=== PATIENT | female | born 1935 | race Caucasian/White ===

== ENCOUNTER 2021-05-24 17:11 | Emergency (ER) | payer OTHER, MEDICARE, SELFPAY ==
[2021-05-24] VITALS (8 sets, daily range): BP systolic 164–208; BP diastolic 88–110; PULSE 89–100; RESP 12–147; TEMP 36.6; O2SAT 9–97; BMI 31.2; BMI 32.1
--- NOTE | ~2021-05-24 | CT_ITS ---
EXAMINATION: CT ANGIOGRAM HEAD CT ANGIOGRAM NECK CLINICAL INFORMATION: Right sided weakness. Found down. Vomiting. COMPARISON: CT head from 05/24/2021. TECHNIQUE: Initial noncontrast gift officer imaging of the head and neck was performed. Comparison is made with noncontrast head CT from earlier today. Test bolus sequences followed by intravenous administration 70 mL of Omnipaque 350. Helical imaging was performed in the axial plane from the aortic arch to the skull vertex. Delayed postcontrast imaging of the head was also performed. The data was processed at the medicine technologist's workstation for generation of MIP sequences. Angled MIPs and volume rendered reformatted images were also generated at an offline 3D workstation. Stenoses are assessed in accordance with NASCET criteria unless otherwise indicated. This CT examination was performed using dose optimization techniques as appropriate, variously including the following: *Automated exposure control. *Adjustment of mA and/or kV according to patient size (this includes techniques or standardized protocols for targeted exams where dose is matched to indication/reason for exam; i.e. extremities or head). *Use of iterative reconstruction technique. DLP: 1483 mGy-cm FINDINGS: CT Head: There is no evidence of acute intracranial hemorrhage or edematous territorial infarction. Scattered hypoattenuation in the periventricular and deep white matter are consistent with moderate microangiopathy. Romero-white matter differentiation is preserved. Proportional prominence of the ventricles and sulcal spaces. No evidence for obstructive hydrocephalus. No abnormal mass effect or midline shift. No extra-axial fluid collections. No pathologic intra-axial enhancement. No acute soft tissue or osseous abnormalities. Moderate mucosal thickening of the paranasal sinuses. Mild leftward nasal septal deviation with spurring. The patient is edentulous. The mastoid air cells and middle ear cavities are clear. Mild degenerative arthropathy of the temporomandibular joints. Bilateral lens extractions. CT Neck: Multinodular thyroid gland. Heterogeneous lesions measure up to 2.3 cm in the right thyroid lobe. The thyroid gland and remaining cervical soft tissues are within normal limits. Advanced degenerative disc disease from C5-T1 with disc-osteophyte complex formation. Facet and uncovertebral joint arthropathy leads to osseous encroachment on the neural foramina from C3-T1. CT Upper Chest: The visualized lung apices and upper mediastinum are within normal limits. Neck CTA: Aortic Arch: Normal contour and caliber with moderate calcific atherosclerotic disease. Classic 3 vessel branching pattern of the aortic arch. Great Vessel Origins: No significant stenosis of the branch origins. Right Common Carotid Artery: No focal stenosis or occlusion. Cervical Right Internal Carotid Artery: Calcific atherosclerotic disease of the carotid bulb and proximal internal carotid artery causing less than 50% stenosis. Left Common Carotid Artery: No focal stenosis or occlusion. Cervical Left Internal Carotid Artery: Calcific atherosclerotic disease of the carotid bulb and proximal internal carotid artery causing less than 50% stenosis. Cervical Right Vertebral Artery: Co-dominant. No focal stenosis or occlusion. Cervical Left Vertebral Artery: Co-dominant. No focal stenosis or occlusion. Brain CTA: Intracranial Internal Carotid Arteries: Calcific atherosclerotic disease of the intracranial internal carotid arteries without occlusion or flow-limiting stenosis. Right Anterior Cerebral Artery: Normal A1 segment. Normal opacification of the distal [place] segments. Left Anterior Cerebral Artery: Normal A1 segment. Normal opacification of the distal [place] segments. Anterior Communicating Artery: Normal. Right Middle Cerebral Artery: Normal M1 segment of the MCA without focal stenosis or occlusion. Normal arborization of the distal segments. Left Middle Cerebral Artery: Normal M1 segment of the MCA without focal stenosis or occlusion. Normal arborization of the distal segments. Right Vertebral Artery: Normal V4 segment. Normal opacification of the proximal segments of the posterior inferior cerebellar artery. Left Vertebral Artery: Normal V4 segment. Normal opacification of the proximal segments of the posterior inferior cerebellar artery. Basilar Artery: Normal without focal stenosis or occlusion. Normal appearance of the proximal superior cerebellar arteries. Right Posterior Cerebral Artery: Normal P1 segment. Normal opacification of the distal EDGER OPERATOR segments. Left Posterior Cerebral Artery: Normal P1 segment. Normal opacification of the distal EDGER OPERATOR segments. Normal opacification of the superior sagittal, straight, transverse, and sigmoid sinuses. CT/CT angio head neck stroke IMPRESSION: 1. No evidence of acute intracranial hemorrhage or edematous territorial infarction. Moderate underlying microangiopathy and generalized cerebral volume loss. 2. CTA of the head and neck without proximal occlusion or flow-limiting stenosis. 3. Moderate multilevel degenerative spondyloarthropathy of the cervical spine. 4. Multinodular thyroid gland. Previously evaluated, this could be further characterized with thyroid ultrasound.
--- NOTE | ~2021-05-24 | CT_ITS ---
EXAMINATION: CT HEAD WITHOUT CONTRAST (STROKE PROTOCOL) CLINICAL INFORMATION: Stroke protocol. Patient found down. Not good history. No trauma. Right-sided weakness. COMPARISON: None TECHNIQUE: Contiguous axial imaging was performed from the skull base to vertex without intravenous administration of contrast. This CT examination was performed using dose optimization techniques as appropriate, variously including the following: *Automated exposure control *Adjustment of mA and/or kV according to patient size (this includes techniques or standardized protocols for targeted exams where dose is matched to indication/reason for exam; i.e. extremities or head) *Use of iterative reconstruction technique DLP: 772 mGy-cm FINDINGS: There is motion artifact on the most cephalad images of the vertex that limits evaluation. No acute intracranial hemorrhage. No evidence of acute large vessel territory ischemia. Moderate periventricular and subcortical white matter hypodensity is seen consistent with chronic microvascular white matter ischemic changes. Chronic lacunar infarct in left basal ganglia. Symmetric increased density in the middle cerebral arteries bilaterally, presumably atherosclerotic changes. Symmetric, concordant prominence of the ventricles and sulci. No mass effect or midline shift. There is circumferential mucosal thickening of the sphenoid and maxillary sinuses. Mild bilateral ethmoid sinus mucosal thickening. Globes and orbits are normal. CT/CT head for stroke IMPRESSION: No acute intracranial pathology. No evidence of acute large vessel territory ischemia or acute intracranial hemorrhage. Moderate periventricular and subcortical white matter hypodensity consistent with chronic microvascular white matter ischemic changes. CTA head and neck is pending. This critical result was discussed with Dr. Hernandez at 1733 hours on 05/24/2021. It was ascertained that the content and urgency of the report was understood at the time of direct communication.
--- NOTE | ~2021-05-24 | XR_ITS ---
EXAMINATION: XR CHEST CLINICAL INFORMATION: CVA COMPARISON: None TECHNIQUE: Frontal view of the chest was obtained. FINDINGS: Low lung volumes. Mild prominence of the pulmonary interstitium. No focal consolidation or mass. No pleural effusions or pneumothorax. Calcified aortic arch. Suture anchors in the left humeral head. Increased density adjacent the left humeral head may reflect calcific tendinitis. XR/XR chest 1V IMPRESSION: Low lung volumes with mild prominence of the pulmonary interstitium, likely bronchovascular crowding. No definite acute pulmonary disease.
--- NOTE | 2021-05-24 17:15 | ECG_ITS ---
Test Reason : SEIZURE Blood Pressure : / mmHG Vent. Rate : 091 BPM Atrial Rate : 091 BPM P-R Int : 192 ms QRS Dur : 102 ms QT Int : 418 ms P-R-T Axes : 024 -02 -01 degrees QTc Int : 514 ms Sinus rhythm with Premature atrial complexes Cannot rule out Inferior infarct (cited on or before 25-APR-2006) Prolonged QT Abnormal ECG When compared with ECG of 25-APR-2006 12:50, Vent. rate has increased BY 30 BPM Referred By: Toney Vila Electronically Signed By:SUSHIL WICK
[2021-05-24 17:23] LABS: Glucose, Whole Blood 198 mg/dL (60-115)
--- NOTE | 2021-05-24 17:25 | ED.NEUROSD ---
HPI - Neuro Symptoms/Deficit General Chief Complaint: Seizure Stated Complaint: stroke/unresponsive 1644 lkwt Time Seen by Provider: 05/24/21 17:14 Source: EMS Mode of arrival: EMS Limitations: no limitations History of Present Illness HPI Narrative: Patient with history of hypertension and diabetes apparent around it 1645 patient's son was taking her getting his hair done patient was weak 1st initially she stumbled and almost fell 2nd time happen again and this time patient had clenched teeth with frothing from the mouth and generalized tonic clonic seizure lasted for 2-3 minutes patient never had any seizure before patient was postictal when EMS arrived and then noticed patient had a right-sided weakness , and just before she arrived her weakness improved and on arrival though no focal deficit patient does not remember falling Related Data Allergies Allergy/AdvReac Type Severity Reaction Status Date / Time No Known Allergies Allergy Verified 05/24/21 17:14 Review of Systems Review of Systems: Yes all other systems are reviewed and are negative [facility] Social History Social History Patient Tobacco Use Status: Former Tobacco user Use of substances other than those prescribed or required for medical reasons: No Advance Directives: No Advance Directives Information Provided: No Physical Exam Vital Signs: Vital Signs: Last Vital Signs Temp 97.9 F 05/24/21 17:30 Pulse 94 05/24/21 20:45 Resp 16 05/24/21 20:45 BP 164/88 H 05/24/21 20:45 Pulse Ox 97 05/24/21 20:45 BMI result Body Mass Index 32.1 Appearance: Alert. Oriented X2. No acute distress. Slightly confused Eyes: PERRLA, No Nystagmus HEENT: Pharynx normal. Oral Mucosa moist tongue bite+ Neck: Normal inspection. Neck supple. CVS: Normal heart rate and rhythm. Pulses normal. Respiratory: No respiratory distress. Equal air entry bilateral, no wheezing/rales/rhonchi Abdomen: Soft and nontender. Bowel sounds are present, no mass palpable, no CVA tenderness Skin: Skin warm and dry. Normal skin color. Normal skin turgor. Extremities: No lower extremity edema. No calf tenderness Neuro: Oriented X 2. No motor deficit. No sensory deficit.No cerebellar signs , cranial nerves II-XII intact MDM - Neuro Symptoms/Deficit MDM Narrative Medical decision making narrative: Patient with new onset seizure etiology not clear CT scan and CTA negative patient is very short lasting seizure advised to follow with neurologist at this time patient is ambulatory in the ER back to baseline Lab Data Attestation: I reviewed the patient's lab results. Result diagrams: 05/24/21 19:02 05/24/21 19:02 Labs: Lab Results 05/24/21 05/24/21 05/24/21 Range/Units 17:18 17:24 19:02 WBC 14.6 H (4.8-10.8) X10*3/uL RBC 5.06 (4.20-5.50) X10*6/uL Hgb 13.6 (12.0-16.0) g/dl Hct 42.4 (37.0-47.0) % MCV 83.8 (80.0-98.0) fL MCH 26.9 L (27.0-33.0) pg MCHC 32.1 (31.0-35.0) g/dl RDW 14.7 (11.0-16.0) % Plt Count 316 (160-400) X10*3/uL MPV 9.8 (9.4-12.3) fL Immature Gran % (Auto) 0.6 H (0.0-0.4) % Neut % (Auto) 87.2 H (45-73) % Lymph % (Auto) 6.4 L (20-40) % [place] % (Auto) 5.0 (2-11) % Eos % (Auto) 0.5 (0-4) % Baso % (Auto) 0.3 (0-2) % Lymph # (Auto) 0.9 L (1.2-4.9) X10*3/uL [place] # (Auto) 0.7 (0.1-1.2) X10*3/uL Eos # (Auto) 0.1 (0.0-0.4) X10*3/uL Baso # (Auto) 0.0 (0.0-0.2) X10*3/uL Abs Immat Gran (auto) 0.09 H (0.00-0.03) X10*3/uL Absolute Neuts (auto) 12.7 H (2.0-8.3) x10*3/uL Absolute Nucleated RBC 0.000 (0.0-0.012) X10*3/uL Nucleated RBC % (auto) 0.0 (0.0-0.2) /100WBC PT (9.9-13.0) SEC Whole Blood PT 13.3 (11.1-13.5) sec INR (0.9-1.1) Whole Blood INR 1.1 (0.9-1.1) Sodium (135-145) mmol/L Potassium (3.3-5.1) mmol/L Chloride (96-108) mmol/L Carbon Dioxide (22-29) mmol/L Anion Gap (12-20) BUN (9-16) mg/dL Creatinine (0.5-1.4) mg/dL Estim Creat Clear Calc Estimated GFR POC Glucose 198 H (60-115) mg/dL Random Glucose (60-115) mg/dL Calcium (8.4-10.2) mg/dL Troponin I High Sens (<3.5-17.0) ng/L Hold Red Top Urine Color Urine Appearance Urine pH (5.0-8.0) Ur Specific [place] (1.005-1.025) Urine Protein (NEG-TRACE) MG/DL Urine Glucose (UA) (NEG) MG/DL Urine Ketones (NEG) MG/DL Urine Blood (NEG) Urine Nitrite (NEG) Ur Leukocyte Esterase (NEG) Urine RBC (0) /HPF Urine WBC (0-4) /HPF Ur Squamous Epith Cells /LPF Urine Bacteria /LPF COVID-19 (JEROD) (Negative) COVID-19 Clin Com 05/24/21 05/24/21 05/24/21 Range/Units 19:02 19:02 19:02 WBC (4.8-10.8) X10*3/uL RBC (4.20-5.50) X10*6/uL Hgb (12.0-16.0) g/dl Hct (37.0-47.0) % MCV (80.0-98.0) fL MCH (27.0-33.0) pg MCHC (31.0-35.0) g/dl RDW (11.0-16.0) % Plt Count (160-400) X10*3/uL MPV (9.4-12.3) fL Immature Gran % (Auto) (0.0-0.4) % Neut % (Auto) (45-73) % Lymph % (Auto) (20-40) % [place] % (Auto) (2-11) % Eos % (Auto) (0-4) % Baso % (Auto) (0-2) % Lymph # (Auto) (1.2-4.9) X10*3/uL [place] # (Auto) (0.1-1.2) X10*3/uL Eos # (Auto) (0.0-0.4) X10*3/uL Baso # (Auto) (0.0-0.2) X10*3/uL Abs Immat Gran (auto) (0.00-0.03) X10*3/uL Absolute Neuts (auto) (2.0-8.3) x10*3/uL Absolute Nucleated RBC (0.0-0.012) X10*3/uL Nucleated RBC % (auto) (0.0-0.2) /100WBC PT 12.6 (9.9-13.0) SEC Whole Blood PT (11.1-13.5) sec INR 1.1 (0.9-1.1) Whole Blood INR (0.9-1.1) Sodium 138 (135-145) mmol/L Potassium 3.5 (3.3-5.1) mmol/L Chloride 105 (96-108) mmol/L Carbon Dioxide 19 L (22-29) mmol/L Anion Gap 18 (12-20) BUN 14 (9-16) mg/dL Creatinine 0.95 (0.5-1.4) mg/dL Estim Creat Clear Calc 48.1 Estimated GFR 56 POC Glucose (60-115) mg/dL Random Glucose 213 H (60-115) mg/dL Calcium 9.7 (8.4-10.2) mg/dL Troponin I High Sens 18.7 H (<3.5-17.0) ng/L Hold Red Top Urine Color Urine Appearance Urine pH (5.0-8.0) Ur Specific [place] (1.005-1.025) Urine Protein (NEG-TRACE) MG/DL Urine Glucose (UA) (NEG) MG/DL Urine Ketones (NEG) MG/DL Urine Blood (NEG) Urine Nitrite (NEG) Ur Leukocyte Esterase (NEG) Urine RBC (0) /HPF Urine WBC (0-4) /HPF Ur Squamous Epith Cells /LPF Urine Bacteria /LPF COVID-19 (JEROD) (Negative) COVID-19 Clin Com 05/24/21 05/24/21 05/24/21 Range/Units 19:02 19:45 20:22 WBC (4.8-10.8) X10*3/uL RBC (4.20-5.50) X10*6/uL Hgb (12.0-16.0) g/dl Hct (37.0-47.0) % MCV (80.0-98.0) fL MCH (27.0-33.0) pg MCHC (31.0-35.0) g/dl RDW (11.0-16.0) % Plt Count (160-400) X10*3/uL MPV (9.4-12.3) fL Immature Gran % (Auto) (0.0-0.4) % Neut % (Auto) (45-73) % Lymph % (Auto) (20-40) % [place] % (Auto) (2-11) % Eos % (Auto) (0-4) % Baso % (Auto) (0-2) % Lymph # (Auto) (1.2-4.9) X10*3/uL [place] # (Auto) (0.1-1.2) X10*3/uL Eos # (Auto) (0.0-0.4) X10*3/uL Baso # (Auto) (0.0-0.2) X10*3/uL Abs Immat Gran (auto) (0.00-0.03) X10*3/uL Absolute Neuts (auto) (2.0-8.3) x10*3/uL Absolute Nucleated RBC (0.0-0.012) X10*3/uL Nucleated RBC % (auto) (0.0-0.2) /100WBC PT (9.9-13.0) SEC Whole Blood PT (11.1-13.5) sec INR (0.9-1.1) Whole Blood INR (0.9-1.1) Sodium (135-145) mmol/L Potassium (3.3-5.1) mmol/L Chloride (96-108) mmol/L Carbon Dioxide (22-29) mmol/L Anion Gap (12-20) BUN (9-16) mg/dL Creatinine (0.5-1.4) mg/dL Estim Creat Clear Calc Estimated GFR POC Glucose (60-115) mg/dL Random Glucose (60-115) mg/dL Calcium (8.4-10.2) mg/dL Troponin I High Sens (<3.5-17.0) ng/L Hold Red Top See Note Urine Color STRAW Urine Appearance HAZY Urine pH 6.0 (5.0-8.0) Ur Specific [place] 1.020 (1.005-1.025) Urine Protein 1+ H (NEG-TRACE) MG/DL Urine Glucose (UA) 100 H (NEG) MG/DL Urine Ketones NEG (NEG) MG/DL Urine Blood TRACE (NEG) Urine Nitrite NEG (NEG) Ur Leukocyte Esterase TRACE H (NEG) Urine RBC 0-2 (0) /HPF Urine WBC 1-4 (0-4) /HPF Ur Squamous Epith Cells 2+ /LPF Urine Bacteria 1+ /LPF COVID-19 (JEROD) Negative (Negative) COVID-19 Clin Com See Note ECG Data Attestation: I personally reviewed and interpreted this ECG as follows: Interpretation: Normal sinus rhythm heart rate 91 beats per minute normal intervals normal axis no acute STT wave changes few PACs no acute ischemia NIH Stroke Scale Internal: Initial- Upon Arrival Level of Consciousness: Alert Level of Consciousness Questions: Answers both questions correctly Level of Consciousness Commands: Performs both tasks correctly Best Gaze: Normal Visual: No visual loss Facial Palsy: Normal Motor Arm (Right): No drift Motor Arm (Left): No drift Motor Leg (Right): No drift Motor Leg (Left): No drift Limb Ataxia: Absent Sensory: Normal Best Language: No aphasia Dysarthia: Normal Extinction and Inattention: No abnormality Score: 0 Discharge Plan Discharge Clinical Impression: Generalized seizure Patient Disposition: Home, Self-Care Instructions: New-Onset Seizure in Adults (ED) Additional Instructions: Follow-up with neurologist for further manage Report to the ER if recurrence of seizures Avoid sleep deprivation Referrals: Joel Harrison MD [Physician] - 3 days Interventions: ED Discharge Assessment Last Done: 05/24/21 21:56 Discharge Date/Time: 05/24/21 22:05
[2021-05-24 17:36] LABS: Prothrombin Time Whole Bld POC 13.3 sec (11.1-13.5); ~PT, ~INR - Anti Coag Clinic 1.1 (0.9-1.1)
--- NOTE | 2021-05-24 18:11 | PC.NURSE ---
pt's son reports she went outside of her home to leave for the hairdresser and had a seizure on the steps. pt confirms that did happen but she doesn't remember what happened after that. her son reports she had a brief loss of consciousness. pt currently alert and oriented x4, denies headache/dizziness. equal strength bilateral lower and upper extremities. no neuro deficits noted. 20g IV placed LAC. HR mid to high 80s, o2 sat high 90s r/a, resp. 18. CTA negative, x-ray currently at bedside.
[2021-05-24] MEDS: iohexoL 350 MG/ML 100 ML INFUS..BTL IV (18:23)
--- NOTE | 2021-05-24 18:28 | PC.NURSE ---
shannon diaz (son) [phone]
[2021-05-24 19:07] LABS: MANUAL DIFF FLAG NO
[2021-05-24 19:08] LABS: Basophils Percent Auto 0.3 % (0-2); Eosinophils Absolute Auto 0.1 X10*3/uL (0.0-0.4); Eosinophils Percent Auto 0.5 % (0-4); Hematocrit 42.4 % (37.0-47.0); Hemoglobin 13.6 g/dl (12.0-16.0); Imm Gran Abs Auto 0.09 X10*3/uL (0.00-0.03); Imm Gran Pct Auto 0.6 % (0.0-0.4); Lymphocytes Absolute Auto 0.9 X10*3/uL (1.2-4.9); Lymphocytes Percent Auto 6.4 % (20-40); Mean Corpuscular HGB Conc 32.1 g/dl (31.0-35.0); Mean Corpuscular Hemoglobin 26.9 pg (27.0-33.0); Mean Corpuscular Volume 83.8 fL (80.0-98.0); Mean Platelet Volume 9.8 fL (9.4-12.3); Monocytes Absolute Auto 0.7 X10*3/uL (0.1-1.2); Neutrophils Absolute Auto 12.7 x10*3/uL (2.0-8.3); Neutrophils Percent Auto 87.2 % (45-73); Platelet Count 316 X10*3/uL (160-400); Red Blood Count 5.06 X10*6/uL (4.20-5.50); Red Cell Distribution Width 14.7 % (11.0-16.0); White Blood Count 14.6 X10*3/uL (4.8-10.8)
[2021-05-24 19:13] LABS: INTERNATIONAL NORM RATIO 1.1 (0.9-1.1); Prothrombin Time 12.6 SEC (9.9-13.0)
[2021-05-24 19:14] LABS: Stroke Lab Use COMPLETE
[2021-05-24 19:25] LABS: Anion Gap 18 (12-20); Blood Urea Nitrogen 14 mg/dL (9-16); Calcium 9.7 mg/dL (8.4-10.2); Carbon Dioxide 19 mmol/L (22-29); Chloride 105 mmol/L (96-108); Creatinine Clr Calc Pharmacy 48.1; Estimated Glomerular Filt Rate 56; Glucose Random 213 mg/dL (60-115); Potassium 3.5 mmol/L (3.3-5.1); Sodium 138 mmol/L (135-145)
[2021-05-24 19:28] LABS: Troponin-I High Sensitivity 18.7 ng/L (<3.5-17.0)
[2021-05-24] MEDS: 0.9 % Sodium Chloride 1,000 ML 999 ML IV (19:54)
[2021-05-24 20:04] LABS: COVID-19 Test Negative (Negative)
[2021-05-24 20:40] LABS: Appearance Urine HAZY; Color Urine STRAW; Glucose Urine UA 100 MG/DL (NEG); Leukocyte Esterase Urine TRACE (NEG); Nitrite Urine NEG (NEG); UACC Culture Trigger YES; Urine Blood TRACE (NEG); Urine Ketones NEG (NEG); Urine Protein 1+ MG/DL (NEG-TRACE)
[2021-05-24 20:49] LABS: Bacteria Urine 1+ /LPF; Squamous Epithelial Cell Urine 2+ /LPF
[2021-05-24 20:50] LABS: RBC Urine 0-2 /HPF (0)
--- NOTE | 2021-05-24 21:30 | PC.NURSE ---
PATIENT ABLE TO AMBULATE TO THE BATHROOM, STEADY ON FEET. STAFF MEMBER AT SIDE IF ASSISTANCE IS NEEDED, DR. HORNER SPEAKING WITH DAUGHTER REGARDING DISCHARGE HOME. PATIENT STATING HEADACHE, PROVIDER IS AWARE. NO NEW ORDERS AT THIS TIME.
== END 2021-05-24 22:05 | disposition home or self-care (01) ==
PROVIDERS: Emergency Provider Internal Medicine
DX: R56.9 Unspecified convulsions (principal); R29.700 NIHSS score 0; Z79.899 Other long term (current) drug therapy; Z20.822 Contact with and (suspected) exposure to COVID-19
CPT/HCPCS: 36415; 70450; 70496; 70498; 71045; 80048; 81001; 82947; 84484; 85025; 85610; 87086; 87088; 87186; 87635; 93005; 96360; 99284; 99285; Q9967

== ENCOUNTER 2021-12-13 07:45 | Outpatient (REF) | payer OTHER, SELFPAY ==
--- NOTE | 2021-12-13 | EEG_ITS ---
This is a 16-channel EEG with an EKG lead. The patient is reported awake during the tracing. Background EEG rhythm is low amplitude fast with no obvious asymmetry or paroxysmal tendency. Some movements, eye opening and closure, and muscle artifacts are noted. Photic stimulation does not produce any significant abnormality. Hyperventilation is not performed. Cardiac lead does not reveal any significant abnormality. IMPRESSION: Unremarkable EEG. MD KAMALJIT Epps/TREASURE / [id number]
== END 2021-12-13 07:46 | disposition home or self-care (01) ==
LOC: HO.NEURO 07:45
PROVIDERS: Visit Provider Psychiatry & Neurology Neurology
DX: R26.9 Unspecified abnormalities of gait and mobility (principal); G40.89 Other seizures
CPT/HCPCS: 95816

== ENCOUNTER 2022-03-06 14:13 | Emergency (ER) | payer OTHER, SELFPAY ==
[2022-03-06 15:11] VITALS: BP 115/59; PULSE 75; RESP 18; TEMP 36.4; O2SAT 97; BMI 29.2
[2022-03-06 15:43] LABS: MANUAL DIFF FLAG NO
[2022-03-06 15:46] LABS: Basophils Absolute Auto 0.1 X10*3/uL (0.0-0.2); Basophils Percent Auto 0.4 % (0-2); Eosinophils Absolute Auto 0.1 X10*3/uL (0.0-0.4); Eosinophils Percent Auto 0.6 % (0-4); Hematocrit 35.3 % (37.0-47.0); Hemoglobin 11.8 g/dl (12.0-16.0); Imm Gran Abs Auto 0.07 X10*3/uL (0.00-0.03); Imm Gran Pct Auto 0.5 % (0.0-0.4); Lymphocytes Absolute Auto 1.3 X10*3/uL (1.2-4.9); Lymphocytes Percent Auto 9.8 % (20-40); Mean Corpuscular HGB Conc 33.4 g/dl (31.0-35.0); Mean Corpuscular Hemoglobin 27.7 pg (27.0-33.0); Mean Corpuscular Volume 82.9 fL (80.0-98.0); Mean Platelet Volume 8.9 fL (9.4-12.3); Monocytes Absolute Auto 1.3 X10*3/uL (0.1-1.2); Monocytes Percent Auto 10.2 % (2-11); Neutrophils Absolute Auto 10.3 x10*3/uL (2.0-8.3); Neutrophils Percent Auto 78.5 % (45-73); Platelet Count 351 X10*3/uL (160-400); Red Blood Count 4.26 X10*6/uL (4.20-5.50); Red Cell Distribution Width 14.4 % (11.0-16.0); White Blood Count 13.2 X10*3/uL (4.8-10.8)
[2022-03-06 15:47] LABS: Appearance Urine Cloudy; Color Urine Dark Yellow; Glucose Urine UA Negative (Negative); Leukocyte Esterase Urine Moderate (2+) (Negative); Nitrite Urine Negative (Negative); PH 5.5 (5.0-9.0); UMIC TRIGGER UACC YES; Urine Blood Negative (Negative); Urine Ketones Trace mg/dL (Negative); Urine Protein 30 (1+) mg/dL (Neg-Trace)
[2022-03-06 15:50] LABS: Bacteria Urine 4+ (None Seen); Hyaline Casts Urine 0-2 /LPF (0-2); RBC Urine 0-2 /HPF (0-2); Squamous Epithelial Cell Urine >20 /HPF (0-2); UACC Culture Trigger YES
[2022-03-06 15:58] LABS: Anion Gap 18 (12-20); Blood Urea Nitrogen 18 mg/dL (9-16); Calcium 9.3 mg/dL (8.4-10.2); Carbon Dioxide 21 mmol/L (22-29); Chloride 103 mmol/L (96-108); Creatinine Clr Calc Pharmacy 44.6; Estimated Glomerular Filt Rate 51; Glucose Random 144 mg/dL (60-115); Potassium 3.4 mmol/L (3.3-5.1); Sodium 139 mmol/L (135-145)
[2022-03-06 16:02] LABS: COVID-19 Test Negative (Negative); IDNOW Serial# 16C4AD1C
== END 2022-03-06 22:09 | disposition left against medical advice (07) ==
LOC: HO.ED 22:01
PROVIDERS: Emergency Provider Emergency Medicine
DX: R10.9 Unspecified abdominal pain (principal); R30.0 Dysuria; Z20.822 Contact with and (suspected) exposure to COVID-19
CPT/HCPCS: 80048; 81001; 85025; 87086; 87635; 99282; 99283

== ENCOUNTER 2022-03-07 05:59 | Emergency (ER) | payer OTHER, SELFPAY ==
--- NOTE | ~2022-03-07 | CT_ITS ---
EXAMINATION: CT ABDOMEN AND PELVIS WITHOUT CONTRAST CLINICAL INFORMATION: Right flank and lower back pain. COMPARISON: None TECHNIQUE: Multidetector volumetric imaging was performed from the superior aspect of the liver through the pubic symphysis. Sagittal and coronal reformatted images were obtained on the technologist's workstation. This CT examination was performed using dose optimization techniques as appropriate, variously including the following: *Automated exposure control *Adjustment of mA and/or kV according to patient size (this includes techniques or standardized protocols for targeted exams where dose is matched to indication/reason for exam; i.e. extremities or head) *Use of iterative reconstruction technique DLP: 615 mGy-cm FINDINGS: LUNG BASES: No pulmonary consolidation or pleural effusion. Atherosclerotic calcification of coronary arteries and thoracic aorta is present. LIVER: Liver has normal size and contour. There is diffuse hepatic steatosis. No suspicious liver lesion is detected on this noncontrast imaging examination. GALLBLADDER AND BILIARY TREE: Gallbladder is moderately distended and has normal wall thickness. A few stones are present within the lumen of the gallbladder. No pericholecystic fluid. No dilated bile ducts. PANCREAS: No acute findings within the atrophied pancreas. No edema, pancreatic ductal dilatation or mass. SPLEEN: Normal. ADRENAL GLANDS: Normal. KIDNEYS AND URETERS: The kidneys have normal size and cortical thickness. No perinephric edema or fluid collection. No urolithiasis or hydroureteronephrosis. 1 cm exophytic focus at the posterior upper pole of the left kidney has density of 30 HU; this is an indeterminate lesion. It might represent a proteinaceous cyst or a solid mass. An indeterminate, exophytic 3.3 cm lesion at the lower pole of the right kidney has density of 33 HU on these noncontrast images. BLADDER: Normal. No calculi or wall thickening. BOWEL AND PERITONEUM: Stomach is underdistended. No dilated bowel loops. No focal bowel wall thickening, mesenteric fat stranding or free fluid. No pneumoperitoneum. The appendix is not visualized; however, no inflammatory changes in the right lower quadrant. Mild diverticulosis of the sigmoid colon without diverticulitis. ABDOMINAL WALL: No acute abnormality. There appears to be mild postoperative scarring in the midline of the lower abdominal wall. VASCULATURE: Atherosclerotic calcification of the abdominal aorta without aneurysm. There are several phleboliths of the right gonadal vein. LYMPH NODES: No pathologic sized lymph nodes in the abdomen or pelvis. No inguinal lymphadenopathy. PELVIC VISCERA: Status post hysterectomy. No pelvic mass or free fluid. SKELETAL: There is levoscoliosis of the degenerated lower thoracic and lumbar spine. 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 There is grade 2 anterolisthesis at L4-L5, and mild retrolisthesis at L2-L3 and L3-L4. The lumbar spinal canal stenosis is severe at L4-L5, and there is bilateral neural foraminal stenosis at L4-L5 (left worse than right). Moderate to severe bilateral neural foraminal stenosis is also noted at L5-S1. Bone island of the T10 vertebral body. No suspicious osseous lesion. CT/CT abdomen pelvis wo IV con IMPRESSION: * There are indeterminate lesions of the lower pole of the right kidney and upper pole of the left kidney. It is uncertain whether these represent solid masses or hyperdense, proteinaceous cysts. Consider renal ultrasound follow-up in attempt to further characterize. * Cholelithiasis without evidence of acute cholecystitis. * Diffuse hepatic steatosis. * No acute abnormalities along the gastrointestinal tract. * Skeletal findings include levoscoliosis of the extensively degenerated lower thoracic and lumbar spine, grade 2 anterolisthesis at L4-5 and severe spinal canal stenosis and bilateral neural foraminal stenosis at L4-5.
[2022-03-07 06:06] VITALS: BP 140/86; BP 143/69; PULSE 65; PULSE 85; RESP 16; TEMP 36.1; O2SAT 100; O2SAT 97; BMI 30.9
[2022-03-07 06:28] LABS: MANUAL DIFF FLAG NO
[2022-03-07 06:31] LABS: Basophils Absolute Auto 0.1 X10*3/uL (0.0-0.2); Basophils Percent Auto 0.4 % (0-2); Eosinophils Absolute Auto 0.2 X10*3/uL (0.0-0.4); Eosinophils Percent Auto 1.3 % (0-4); Hematocrit 33.9 % (37.0-47.0); Hemoglobin 11.3 g/dl (12.0-16.0); Imm Gran Abs Auto 0.05 X10*3/uL (0.00-0.03); Imm Gran Pct Auto 0.4 % (0.0-0.4); Lymphocytes Absolute Auto 1.6 X10*3/uL (1.2-4.9); Lymphocytes Percent Auto 14.3 % (20-40); Mean Corpuscular HGB Conc 33.3 g/dl (31.0-35.0); Mean Corpuscular Hemoglobin 27.6 pg (27.0-33.0); Mean Corpuscular Volume 82.9 fL (80.0-98.0); Mean Platelet Volume 8.8 fL (9.4-12.3); Monocytes Absolute Auto 1.1 X10*3/uL (0.1-1.2); Monocytes Percent Auto 9.3 % (2-11); Neutrophils Absolute Auto 8.4 x10*3/uL (2.0-8.3); Neutrophils Percent Auto 74.3 % (45-73); Platelet Count 318 X10*3/uL (160-400); Red Blood Count 4.09 X10*6/uL (4.20-5.50); White Blood Count 11.3 X10*3/uL (4.8-10.8)
--- NOTE | 2022-03-07 06:45 | ED.ABDPAIN ---
HPI - Abdominal Pain General Chief Complaint: Abdominal Pain Stated Complaint: Lower back pain Time Seen by Provider: 03/07/22 06:28 Source: patient Mode of arrival: ambulatory Limitations: no limitations History of Present Illness HPI narrative: 87-year-old female who presents emergency department for evaluation right flank and right-sided abdominal pain which began yesterday morning at around 08:00 hours. Patient states the pain came on suddenly and gradually got worse. She states the pain is constant but comes in waves. She states the pain is 9/10 at its worst. Pain is worse with movement. The pain does not radiate to her lower extremities. She states that her last bowel movement was 2 days prior. She states she has had similar pain 2 years prior but was not as severe. Patient did come to the emergency department yesterday however due to the long wait she went home. She states she took ibuprofen at home with no relief for pain and the pain was worse this morning so she return to the emergency department. She states that she has had subjective fever and chills. She denied rhinorrhea, sore throat, cough, chest pain, shortness of breath, dyspnea on exertion. She has had nausea associated with the pain but no vomiting or diarrhea. She states she has had dysuria and urgency but no frequency. She has not noticed any dark or bloody stools her last bowel movement was 2 days prior. MD elicited complaint: abdominal pain and flank pain Onset (ago): day(s) (2) Pain Consistency: constant Location: RUQ, RLQ and R flank Severity: severe Pain scale (0-10): 9 Quality: other (Pain) Radiation: none Migration to: no migration Exacerbating factors: movement Relieving factors: nothing Associated symptoms: nausea, fever, chills, constipation and dysuria (Urgency) Treatments prior to arrival: NSAIDs Related Data Previous Rx's Medication Instructions Recorded cefuroxime axetil 250 mg tablet 250 mg PO BID 7 days #14 tabs 05/29/21 morphine 15 mg immediate release 15 mg PO Q4-6H PRN pain #14 tabs 03/07/22 tablet Allergies Allergy/AdvReac Type Severity Reaction Status Date / Time acetaminophen [From Percocet] Allergy Hives Verified 03/06/22 15:15 oxycodone [From Percocet] Allergy Hives Verified 03/06/22 15:15 Review of Systems Review of Systems Yes all other systems are reviewed and are negative [facility] Past Medical History [facility] Narrative: Past medical history: Diabetes mellitus, hypertension. Past surgical history: Appendectomy, hysterectomy with bilateral salpingo-oophorectomy. Social history: The patient is a former smoker. She states she was smoking up to 5 packs per day and smoked at least 25 years. She states she stop smoking 20 years prior. She occasionally drinks alcohol. She denies drug use. Social History Social History Patient Tobacco Use Status: Former Tobacco user Use of substances other than those prescribed or required for medical reasons: No Advance Directives: No Physical Exam ED Vital Signs: Vital Signs - 24 hr 03/07/22 06:06 03/07/22 07:44 Temperature 97 F 98.0 F Pulse Rate 65 62 Respiratory Rate 16 16 Blood Pressure 143/69 H 114/57 L Pulse Oximetry 97 96 Oxygen Delivery Method Room Air Room Air BMI result Body Mass Index 30.9 Const Other: Awake, alert, female patient, pleasant, cooperative, answers all questions appropriately, does not appear to be in distress. Patient does seem to have severe pain when she tries to sit up. [facility] Head: Yes normal to inspection, Yes normocephalic and Yes atraumatic Ears: external ears normal General nose exam: Normal external nose present Face and sinus: Yes normal facial exam Mouth: Normal oral and palatal mucosa present Throat: Yes posterior oropharynx normal Eyes General: appearance normal, both eyes and all related structures Pupils: Equal, round and reactive pupils present Neck Neck: Yes normal visual inspection, Yes no lymphadenopathy, Yes trachea midline and Yes supple Chest Chest palpation & inspection: normal inspection of the chest and normal palpation of entire chest wall Resp Effort & Inspection: normal respiratory effort and able to speak in complete sentences Auscultation: clear to auscultation bilaterally Cardio Rate: regular rate Rhythm: regular rhythm Heart sounds: S1 normal heart sound present, S2 normal heart sound present and no murmurs GI Inspection: Yes normal to inspection Palpation (GI): Soft to palpation, Tenderness to palpation present (GI) in the RLQ (Moderate) and in the RUQ (Moderate) and no guarding Auscultation: normal bowel sounds General: Yes CVA tenderness (Right flank, moderate) Back/Spine/Pelvis Other: Patient has no tenderness palpation of her vertebrae, she has mild to moderate tenderness palpation over her right lumbar sacral paraspinal muscles with no spasm of these muscles Back: CVA tenderness (Right flank, moderate) Skin General skin exam: no rashes or lesions noted Neuro Cranial nerves: Yes CN's II-XII intact bilaterally and Yes Equal, round and reactive pupils present Cognition (Neuro): normal cognition Motor exam (neuro): 5/5 motor strength present throughout Extrem General: Yes normal to inspection Psych Appearance: grossly normal Speech and movement: Normal speech and movement present Affect: normal affect Attitude: cooperative Thought process: Normal thought process present Thought content: Normal thought content present Course Course Course Narrative: 87-year-old female who presents emergency department for evaluation of right-sided abdominal pain and right lower back/flank pain which began suddenly yesterday at 08:00 hours and got gradually worse. She describes the pain as a ?pain ?that waxes and wanes in intensity is 9/10 at its worst. The pain is worse with movement. Vital signs were unremarkable. Patient did have tenderness palpation of paraspinal muscles in the lumbar sacral area with no spasm of these muscles no vertebral tenderness. She also had right flank CVA tenderness and moderate right upper and right lower quadrant tenderness. Patient had difficulty sitting up on the stretcher secondary to exacerbation of the pain. I did order a CBC, CMP, lipase, urinalysis, CT abdomen pelvis without IV contrast. Patient's pain was treated with Toradol 15 mg IV, morphine 4 mg IV and her nausea was treated with Zofran 4 mg IV. I did order normal saline 1 L IV. Labs from yesterday reviewed: WBC elevated 13.2. H&H 11.8 and 35.3. BMP was unremarkable. UA was a non clean catch specimen. 1003: Laboratory evaluation: Elevated WBC 92363, anemia H&H 11.3 and 33.9. Potassium low 3.2. LFTs normal. Lipase normal. Radiology evaluation: CT scan of the abdomen pelvis without IV contrast radiology interpretation: IMPRESSION: * There are indeterminate lesions of the lower pole of the right kidney and upper pole of the left kidney. It is uncertain whether these represent solid masses or hyperdense, proteinaceous cysts. Consider renal ultrasound follow-up in attempt to further characterize. * Cholelithiasis without evidence of acute cholecystitis. * Diffuse hepatic steatosis. * No acute abnormalities along the gastrointestinal tract. * Skeletal findings include levoscoliosis of the extensively degenerated lower thoracic and lumbar spine, grade 2 anterolisthesis at L4-5 and severe spinal canal stenosis and bilateral neural foraminal stenosis at L4-5. Dictated By:Alex Whipple MD Patient is feeling better after the above treatment. The patient's pain is most likely secondary to her degenerative lumbar and thoracic disease. I did discuss this with her. Patient was advised to take Tylenol ibuprofen for pain not relieved by these medications she was prescribed morphine. I also discuss the incidental findings as above and the patient will need to get an outpatient ultrasound of her kidneys 3 your PCP. MDM - Abdominal Pain Lab Data Result diagrams: 03/07/22 06:24 03/07/22 06:24 Labs: Lab Results 03/07/22 03/07/22 Range/Units 06:24 06:24 WBC 11.3 H (4.8-10.8) X10*3/uL RBC 4.09 L (4.20-5.50) X10*6/uL Hgb 11.3 L (12.0-16.0) g/dl Hct 33.9 L (37.0-47.0) % MCV 82.9 (80.0-98.0) fL MCH 27.6 (27.0-33.0) pg MCHC 33.3 (31.0-35.0) g/dl RDW 14.0 (11.0-16.0) % Plt Count 318 (160-400) X10*3/uL MPV 8.8 L (9.4-12.3) fL Immature Gran % (Auto) 0.4 (0.0-0.4) % Neut % (Auto) 74.3 H (45-73) % Lymph % (Auto) 14.3 L (20-40) % Mccreary % (Auto) 9.3 (2-11) % Eos % (Auto) 1.3 (0-4) % Baso % (Auto) 0.4 (0-2) % Lymph # (Auto) 1.6 (1.2-4.9) X10*3/uL Mccreary # (Auto) 1.1 (0.1-1.2) X10*3/uL Eos # (Auto) 0.2 (0.0-0.4) X10*3/uL Baso # (Auto) 0.1 (0.0-0.2) X10*3/uL Abs Immat Gran (auto) 0.05 H (0.00-0.03) X10*3/uL Absolute Neuts (auto) 8.4 H (2.0-8.3) x10*3/uL Absolute Nucleated RBC 0.000 (0.0-0.012) X10*3/uL Nucleated RBC % (auto) 0.0 (0.0-0.2) /100WBC Sodium 140 (135-145) mmol/L Potassium 3.2 L (3.3-5.1) mmol/L Chloride 103 (96-108) mmol/L Carbon Dioxide 22 (22-29) mmol/L Anion Gap 18 (12-20) BUN 25 H (9-16) mg/dL Creatinine 1.22 (0.5-1.4) mg/dL Estim Creat Clear Calc 36.1 Estimated GFR 42 Random Glucose 130 H (60-115) mg/dL Calcium 9.2 (8.4-10.2) mg/dL Total Bilirubin 0.6 (0.0-1.0) mg/dL AST 9 (5-31) U/L ALT 8 (0-31) U/L Alkaline Phosphatase 77 (39-117) U/L Total Protein 6.7 (6.5-8.0) g/dL Albumin 3.9 (3.5-5.0) g/dL Lipase 13 (8-78) U/L Discharge Plan Discharge Clinical Impression: Lumbar back pain, Spinal stenosis at L4-L5 level Abdominal pain Qualifiers: Abdominal location: right lower quadrant Qualified Code(s): R10.31 - Right lower quadrant pain Patient Disposition: Home, Self-Care Instructions: Acute Low Back Pain (ED) Additional Instructions: Your blood work was nonspecific and unremarkable. Your CT scan of the abdomen pelvis did not reveal a clear abdominal cause for your pain but you do have degenerative disease of the lower thoracic and lumbar bones of your back causing spinal stenosis which I believe is the cause of your back pain and abdominal pain. Take ibuprofen 200 mg pills, 2 pills every 6 hours as needed for pain. Take Tylenol (acetaminophen) 2 pills every 4-6 hours as needed for pain. For pain not relieved by ibuprofen or Tylenol take morphine 15 mg pills, 1 pill every 4 hours as needed for pain. This medication will make you sleepy, do not drive or work while taking this medication. Morphine is a narcotic medication and can be addicting. If you are concerned about addiction you can ask the pharmacist for less pills or do not get this prescription filled. Follow-up with your doctor in 2 days. Please return to the emergency department if your symptoms get worse or if you develop any symptoms that are concerning to you. You have several incidental findings on the CT scan that are not related to your pain today, I did give you a copy of the CT scan reading, you should bring this to your primary care doctor. The radiologist saw indeterminate lesions in the lower pole of your right kidney and upper pole of left kidney, these may be kidney cyst but the radiologist is recommending an ultrasound of your kidneys to make sure that this is not kidney cancer. You should get an outpatient ultrasound by your primary care doctor to further evaluate this finding. You have gallstones which are not causing your pain. You have extra fat in your liver, sometimes this can lead to worsening diabetes and liver failure, the treatment is often to try to lose weight, you should discuss this with your doctor. Prescriptions: New morphine 15 mg tablet 15 mg PO Q4-6H PRN (Reason: pain) Qty: 14 0RF Rx Instructions: Patient may request partial fill; Partial Fill upon patient request. No Action cefuroxime axetil 250 mg tablet 250 mg PO BID 7 Days Qty: 14 0RF
[2022-03-07 06:50] LABS: Alanine Aminotransferase 8 U/L (0-31); Albumin Level 3.9 g/dL (3.5-5.0); Alkaline Phosphatase 77 U/L (39-117); Anion Gap 18 (12-20); Aspartate Amino Transferase 9 U/L (5-31); Bilirubin Total 0.6 mg/dL (0.0-1.0); Blood Urea Nitrogen 25 mg/dL (9-16); Calcium 9.2 mg/dL (8.4-10.2); Carbon Dioxide 22 mmol/L (22-29); Chloride 103 mmol/L (96-108); Creatinine Clr Calc Pharmacy 36.1; Estimated Glomerular Filt Rate 42; Glucose Random 130 mg/dL (60-115); Lipase 13 U/L (8-78); Potassium 3.2 mmol/L (3.3-5.1); Sodium 140 mmol/L (135-145); Total Protein 6.7 g/dL (6.5-8.0)
[2022-03-07] MEDS: ondansetron HCL 4 MG/2 ML VIAL IVPUSH (06:58)
[2022-03-07] MEDS: Morphine Sulfate 4 MG/ML CARTRIDGE IVPUSH (06:59)
[2022-03-07] MEDS: Ketorolac Tromethamine 15 MG/ML VIAL IVPUSH (06:59)
[2022-03-07] MEDS: 0.9 % Sodium Chloride 1,000 ML 999 ML IV (07:00)
[2022-03-07 07:44] VITALS: BP 114/57; PULSE 62; RESP 16; TEMP 36.7; O2SAT 96
[2022-03-07 10:22] VITALS: BP 138/77; PULSE 68; RESP 18; O2SAT 100
== END 2022-03-07 10:29 | disposition home or self-care (01) ==
PROVIDERS: Emergency Provider Emergency Medicine Emergency Medical Services
DX: M54.50 Low back pain, unspecified (principal); R30.0 Dysuria; R10.9 Unspecified abdominal pain; K59.00 Constipation, unspecified; Z79.899 Other long term (current) drug therapy
CPT/HCPCS: 36415; 74176; 80053; 83690; 85025; 96361; 96374; 96375; 99284; J1885; J2270; J2405

== ENCOUNTER 2025-03-19 13:18 | Outpatient (RCR) | payer OTHER, SELFPAY | END 2025-04-13 16:44 | disposition home or self-care (01) | LOC: HO.WCC 13:18 | PROVIDERS: Visit Provider Surgery Surgical Oncology | DX: L98.492 Non-pressure chronic ulcer of skin of other sites with fat layer exposed (principal); T85.121A Displacement of implanted electronic neurostimulator of peripheral nerve electrode (lead), initial encounter; I50.9 Heart failure, unspecified; Z79.4 Long term (current) use of insulin; Z96.82 Presence of neurostimulator; Z87.891 Personal history of nicotine dependence | CPT/HCPCS: 11042; 99213 ==